=== PATIENT | male | born 1990 | race Two or more races ===

== ENCOUNTER 2024-12-13 11:44 | Day surgery (SDC) | payer OTHER ==
[2024-12-12 09:34] LABS: Urine Bacteria None Seen /hpf (None Seen)
[2024-12-12 09:50] LABS: Basophils # (auto) 0.1 10 ^3/uL (0-0.2); Basophils % (auto) 1.2 % (0.0-2.0); Eosinophils # (auto) 0.1 10 ^3/uL (0-0.8); Eosinophils % (auto) 2.7 % (0.0-7.0); Hemoglobin 14.5 g/dL (13.5-17.5); Lymphocytes % (auto) 36.1 % (10.0-50.0); Mean Corpuscular Hemoglobin 28.8 pg (28.0-32.0); Mean Corpuscular Hgb Conc. 33.8 g/dL (32.0-36.0); Mean Corpuscular Volume 85.2 fL (80.0-100.0); Monocytes # (auto) 0.5 10 ^3/uL (0-1.3); Monocytes % (auto) 8.6 % (0.0-12.0); Neutrophils # (auto) 2.8 10 ^3/uL (1.6-8.6); Neutrophils % (auto) 51.4 % (37.0-80.0); Nucleated Red Blood Cells % 0.1 %; Platelet Count (auto) 290 10^3/uL (140-450); Red Blood Cells 5.05 10^6/uL (4.5-5.90); Red Cell Distribution Width 13.2 % (11.8-14.3); White Blood Cell 5.5 10^3/uL (4.4-10.8)
[2024-12-12 09:56] LABS: Urine Blood Negative /uL (Negative); Urine Clarity Clear (Clear); Urine Color Light-Yellow (Yellow); Urine Mucus FEW (None Seen); Urine Protein, UAD Negative (Negative); Urine Specific Gravity 1.024 (1.001-1.035); Urine Squamous Epithelial Cell FEW /hpf (<5); Urine Urobilinogen Normal (Negative); Urine WBC 7 /HPF (0-3); Urine pH 5.5 (5.0-9.0)
[2024-12-12 10:05] LABS: Alanine Aminotransferase 37 U/L (7-40); Alkaline Phosphatase 84 U/L (46-116); Anion Gap 8 (5-15); BUN/Creatinine Ratio 10.6 (10.0-20.0); Blood Urea Nitrogen 13 mg/dL (9-23); Calcium 10.2 mg/dL (8.7-10.4); Carbon Dioxide 29 mmol/L (20-31); Chloride 103 mmol/L (98-107); Glucose 105 mg/dL (74-106); Potassium 4.4 mmol/L (3.5-5.1); Sodium 140 mmol/L (136-145)
[2024-12-12 10:06] LABS: Albumin 5.3 g/dL (3.2-4.8); Aspartate Aminotransferase 9 U/L (13-40); Bilirubin, Total 0.3 mg/dL (0.2-1.0); Total Protein 7.6 g/dL (5.7-8.2)
[2024-12-12 10:34] LABS: INR 1.06 (0.9-1.15); Partial Thromboplastin Time 28.8 SEC (24.5-34.5); Prothrombin Time 11.2 sec (9.3-11.8)
[~2024-12-13] VITALS: Ht 177.8 cm; Wt 104.3 kg
[~2024-12-13 11:44] MED LIST: IBUP-1456 PO
[2024-12-13] MEDS ORDERED: CELECOXIB 100 MG CAP ONE (14:22)
[2024-12-13] MEDS ORDERED: ACETAMINOPHEN IV 100 ML IV ONE (14:23)
[2024-12-13] MEDS ORDERED: GABAPENTIN 400 MG CAP ONE (14:23)
[2024-12-13] MEDS: ACETAMINOPHEN IV 1000 MG/100ML (10MG/ML) IV ONE (14:25)
[2024-12-13] MEDS: GABAPENTIN 400 MG CAP PO ONE (14:25)
[2024-12-13] MEDS: CELECOXIB 100 MG CAP PO ONE (14:25)
[2024-12-13] MEDS ORDERED: KETOROLAC TROMETH 30 MG/ML 1ML VIAL ONE (14:31)
[2024-12-13] MEDS ORDERED: PROPOFOL 10 MG/ML 20 ML IV ONE (14:31)
[2024-12-13] MEDS ORDERED: ROCURONIUM 10MG/ML 10ML VIAL IV ONE (14:31)
[2024-12-13] MEDS ORDERED: ONDANSETRON HCL 4 MG/2 ML VIAL ONE (14:31)
[2024-12-13] MEDS ORDERED: GLYCOPYRROLATE 0.2 MG/ML 1ML VIAL ONE (14:31)
[2024-12-13] MEDS ORDERED: DexAMETHasone SOD PHOS 10MG/1ML VIAL INJ ONE (14:31)
[2024-12-13] MEDS ORDERED: SUGAMMADEX 200mg/2ml Vial (100MG/ML) IV ONE (14:31)
[2024-12-13] MEDS ORDERED: LIDOCAINE 2%HCL (LOCAL ANESTH.) INJ 10ml MDV ONE (14:32)
[2024-12-13] MEDS ORDERED: KETAMINE 50mg/ML 1ml syringe ONE (14:32)
[2024-12-13] MEDS ORDERED: fentaNYL CITRATE 100 MCG/2 ML VL ONE (14:32)
[2024-12-13] MEDS: ceFAZolin 2 GM/D5W100ml 100 ML IV ONE (14:36)
--- NOTE | 2024-12-13 15:49 | DVHOP2 ---
Operative Report - 2 Report Details Date: 12/13/24 Preop Diagnosis: 1. Left Achilles rupture 2. Left ankle pain Postop Diagnosis: Since preop Surgeon: Abilio Barton MD Anesthesiologist: See anesthesia Anesthesia: General Implant: Arthrex suture Consent: The patient was informed of the risks and benefits of the procedure. These include but are not limited to complications of anesthesia, postoperative infection, incomplete relief of symptoms, recurrence of symptoms, damage to blood vessels, nerves and tendons, deep venous thrombosis, pulmonary embolism and possible need for repeat surgery in the future. Complications: None Estimated Blood Loss: Minimal Fluids: See anesthesia Findings: Consistent with diagnosis Indications for Surgery: Acute left Achilles rupture Name of Procedure Performed 1. Left Achilles tendon repair Procedure Details Procedure Details: PRE-PROCEDURE INFORMATION: In the pre-op holding area, the extremity to be operated on was clearly marked and the patient verified correct laterality of the marking. The patient was transferred to the OR table and placed in a prone position. A timeout was performed in which identification of the correct patient, procedure, location, and materials was done. The left foot and leg were prepped and draped in normal sterile fashion. The foot and leg were exsanguinated and the thigh tourniquet was inflated to 250 mmHg. DESCRIPTION OF PROCEDURE: Attention was directed to the left Achilles where the palpable defect was detected. A small 3 cm incision was made at that level. The distal and proximal ends of the Achilles tendon were then identified. Using an Allis clamp the proximal end of the Achilles tendon was then retracted. Using the Arthrex pars jig, the jig was passed around the proximal end of the Achilles tendon. Using the accompanying sutures and suture passers, the sutures were placed in the proximal and and were tied in the locking mechanism. The same procedure was then for the distal end with the Arthrex pars jig placed in the distal stump of the Achilles tendon. Using the accompanying sutures and suture passers, the sutures were placed in the distal end and were tied in the locking mechanism. The foot was then plantar flexed and the sutures were then tied into end. It was noted at the procedure that he no longer had an abnormal Hudson test. All surgical wounds were irrigated copiously with saline and closed in layers with the aforementioned suture material. A dry sterile dressing was placed on the surgical extremity. The patient was placed in a posterior splint POSTOPERATIVE INFORMATION: The patient tolerated the above noted procedure and anesthesia well and was transferred to the PACU with vital signs stable, and vascular status intact with capillary refill intact to all digits. Postoperative instructions reviewed in detail with the patient with written instructions provided. Patient will return to clinic in approximately 10-14 days for first postoperative visit. Patient has the number of the clinic and was instructed to call prior to that time should any problems, questions, or concerns arise. Condition Good Disposition Still a Patient ABILIO BARTON DPM Dec 13, 2024 15:49
[2024-12-13 15:58] VITALS: PULSE 80; RESP 10; TEMP 98; O2SAT 100
[2024-12-13] MEDS ORDERED: ePHEDrine SULFATE 50 MG/ML AMP IV PRN (16:15)
[2024-12-13] MEDS ORDERED: FLUMAZENIL 0.1 MG/ML INJ 10ML MDV IV PRN (16:15)
[2024-12-13] MEDS ORDERED: HYDROmorphone HCL 2 MG/ML VL/or syr IV PRN (16:15)
[2024-12-13] MEDS ORDERED: ONDANSETRON HCL 4 MG/2 ML VIAL IV PRN (16:15)
[2024-12-13] MEDS ORDERED: hydrALAZINE HCL 20 MG/ML VL IV PRN (16:15)
[2024-12-13] MEDS ORDERED: oxyCODONE HCL 5MG TAB PO PRN (16:15)
[2024-12-13] MEDS ORDERED: fentaNYL CITRATE 100 MCG/2 ML VL IV PRN (16:15)
[2024-12-13] MEDS ORDERED: NALOXONE HCL 0.4 MG/ML VIAL IV PRN (16:15)
[2024-12-13 16:58] VITALS: BP 129/82; PULSE 74; RESP 12; O2SAT 97
== END 2024-12-13 17:15 | disposition home or self-care (01) ==
LOC: SUR 11:44
PROVIDERS: ATTEND Podiatrist
DX: S86.012A Strain of left Achilles tendon, initial encounter (principal); E66.9 Obesity, unspecified; X58.XXXA Exposure to other specified factors, initial encounter; Y93.61 Activity, american tackle football; Y92.89 Other specified places as the place of occurrence of the external cause; Y99.8 Other external cause status; Z68.33 Body mass index [BMI] 33.0-33.9, adult
CPT/HCPCS: 27650; 36415; 80053; 81001; 85025; 85610; 85730; C1713; J1100; J1885; J2003; J2405; J2704; J3010; J0131